=== PATIENT | female | born 1990 | race Hispanic/Latino ===

== ENCOUNTER → 2018-03-21 | Day surgery (SDC) | payer OTHER ==
[2018-03-18 15:08] LABS: BASOPHILS % 0.6 % (0.0-1.0); EOSINOPHILS # (AUTO) 0.1 (0.0-0.4); EOSINOPHILS % 1.8 % (0.0-6.0); HEMATOCRIT 38.6 % (34.2-44.1); HEMOGLOBIN 13.1 g/dL (12.0-16.0); LYMPHOCYTES # (AUTO) 2.4 (1.0-3.2); MEAN CORPUSCULAR HEMOGLOBIN 30.5 pg (28-32); MEAN CORPUSCULAR HGB CONC 33.9 g/dL (31-35); MEAN CORPUSCULAR VOLUME 89.8 fL (81-99); MONOCYTES # (AUTO) 0.4 (0.2-0.8); MONOCYTES % 5.9 % (4.4-11.3); NEUTROPHILS # (AUTO) 4.1 (2.1-6.9); NEUTROPHILS % 57.6 % (38.7-80.0); PLATELET COUNT 301 x10e3/uL (140-360); RED CELL DISTRIBUTION WIDTH 13.6 % (11.7-14.4)
[~2018-03-21] MED LIST: BUPIVACAINE 0.25%/EPI 30ML SDV INJ ONE; DEXAMETHASONE SOD PHOS INJ 4 MG/ML VIAL ONE; DOXYCYCLINE HY100 MG PO; FENTANYL CITRATE/PF 100MCG/2 ML INJ ONE; HYDROMORPHONE 2MG/ML 2 MG/ML ML ONE; IODINE/POTASSIUM IODIDE 8 ML SOLUTION TP ONE; KETOROLAC TROMETHAMINE 30 MG/ML VIAL ONE; LIDOCAINE HCL 2% LOCAL INJ 5 ML SDV VIAL INJ ONE; MIDAZOLAM HCL 2 MG/2 ML VIAL ONE; ONDANSETRON HCL INJ 2MG/ML 2ML 2 MG/ML VIAL ONE; PROPOFOL IV EMULSION 10 MG/ML 20 ML VIAL ONE; SEVOFLURANE INHAL SOLN 250 ML PEN BTL ONE
--- OUTSIDE RECORDS SUMMARY | 2018-03-21 10:27 | XMS REPORT | Clinical Summary ---
Author Author [facility] Address Unknown Phone Unavailable Care Team Providers Care Tape Coater Name Role Phone Asked, No Pcp PCP Unavailable Allergies No Known Allergies Medications No known medications Active Problems Not on file Encounters Care Team Description Date Type Specialty Ascencion Visnon MD Open wound of umbilical region, initial encounter (Primary Dx) 11/16/2017 Emergency Emergency Medicine Jonel Cobos, RAD[facility] Leon Guerra MD Fall from standing, initial encounter (Primary Dx); Injury of head, initial encounter; Concussion without loss of consciousness, initial encounter 11/06/2017 Emergency Emergency Medicine - 11/07/2017 after 03/20/2017 Social History Date Tobacco Use Types Packs/Day Years Used Never Smoker Smokeless Tobacco: Never Used Alcohol Use Drinks/Week oz/Week Comments Yes occasional. Sex Assigned at Date Recorded Not on file Industry Job Start Date Occupation Not on file Not on file Not on file Travel End Travel History Travel Start No recent travel history available. Last Filed Vital Signs Time Taken Vital Sign Reading 11/16/2017 11:37 AM CDT Blood Pressure 110/59 11/07/2017 12:06 AM CDT Pulse 75 11/16/2017 11:37 AM CDT Temperature 37.1 C (98.8 F) 11/16/2017 11:37 AM CDT Respiratory Rate 16 11/16/2017 11:37 AM CDT Oxygen Saturation 100% - Inhaled Oxygen - Concentration 11/16/2017 11:37 AM CDT Weight 71.2 kg (157 lb) 11/16/2017 11:37 AM CDT Height 170.2 cm (5' 7") 11/16/2017 11:37 AM CDT Body Mass Index 24.59 Plan of Treatment Health Maintenance Due Date Last Done Comments CERVICAL CANCER SCREENING 04/27/2011 INFLUENZA VACCINE 09/26/2017 Procedures Comments Procedure Name Priority Date/Time Associated Diagnosis CT ABDOMEN PELVIS W STAT 11/16/2017 CONTRAST 1:07 PM CDT HCG QUALITATIVE, SERUM STAT 11/16/2017 SCREEN 11:50 AM CDT ESTIMATED GFR STAT 11/16/2017 11:50 AM CDT COMPREHENSIVE METABOLIC STAT 11/16/2017 PANEL 11:50 AM CDT PARTIAL THROMBOPLASTIN STAT 11/16/2017 TIME (PTT) 11:50 AM CDT PROTHROMBIN TIME WITH INR STAT 11/16/2017 11:50 AM CDT HC COMPLETE BLD COUNT STAT 11/16/2017 W/AUTO DIFF 11:[address] HEAD WO CONTRAST STAT 11/06/2017 11:[address] CERVICAL SPINE WO STAT 11/06/2017 CONTRAST 11:12 PM CDT HCG QUALITATIVE, URINE Routine 11/06/2017 SCREEN 10:00 PM CDT after 03/20/2017 Results * CT Abdomen Pelvis W Contrast (11/16/2017 1:07 PM CDT) Narrative Performed At EXAMINATION:CT ABDOMEN PELVIS W CONTRAST [facility] CLINICAL HISTORY: 27 yearsFemale Abd infection (incl peritonitis), pt wnumerous laparoscopic surgerieshas defect in belly buttoneval for underlying 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 Sagittal and coronal computerized reformatted images were also obtained. CT imaging was performed with iterative reconstruction techniques and/or automated exposure control to reduce radiation dose. COMPARISON:None. IMPRESSION: Lung bases: 1.There are no focal consolidations or effusions. Abdomen: 1. The liver, spleen, pancreas, gallbladder and biliary tree, adrenal glands, and kidneys are normal. 2.The abdominal aorta is normal in caliber. There is no evidence of retroperitoneal mass or adenopathy. 3.The appendix is absent. There is no evidence of intestinal obstruction or free intraperitoneal air. 4.No focal abnormality is identified in the umbilical region. Pelvis: 1. There are changes related to bilateral tubal ligation. 2.A 4.2 cm low density mass is present in the left adnexum. There is a tiny amount of free fluid in the pelvic cul-de-sac. Musculoskeletal: Regional skeletal structures are within normal limits. SUMMARY: 1.4.2 cm low-density mass left adnexum likely represents a hemorrhagic cyst. Pelvic ultrasonography is recommended for further evaluation. 2.Status post bilateral tubal ligation. 3.No evidence of umbilicus fluid collection or fistula. [facility]-[id number] Procedure Note Interface, Radiology Results Incoming - 11/16/2017 1:22 PM CDT EXAMINATION: CT ABDOMEN PELVIS W CONTRAST CLINICAL HISTORY: 27 yearsFemale Abd infection (incl peritonitis), pt w numerous laparoscopic surgeries has defect in belly button eval for underlying abscess communicating fistula in the area of the navel TECHNIQUE: Multiple axial images of the abdomen and pelvis were obtained following intravenous administration of iodinated contrast. Sagittal and coronal computerized reformatted images were also obtained. CT imaging was performed with iterative reconstruction techniques and/or automated exposure control to reduce radiation dose. COMPARISON: None. IMPRESSION: Lung bases: 1. There are no focal consolidations or effusions. Abdomen: 1. The liver, spleen, pancreas, gallbladder and biliary tree, adrenal glands, and kidneys are normal. 2. The abdominal aorta is normal in caliber. There is no evidence of retroperitoneal mass or adenopathy. 3. The appendix is absent. There is no evidence of intestinal obstruction or free intraperitoneal air. 4. No focal abnormality is identified in the umbilical region. Pelvis: 1. There are changes related to bilateral tubal ligation. 2. A 4.2 cm low density mass is present in the left adnexum. There is a tiny amount of free fluid in the pelvic cul-de-sac. Musculoskeletal: Regional skeletal structures are within normal limits. SUMMARY: 1. 4.2 cm low-density mass left adnexum likely represents a hemorrhagic cyst. Pelvic ultrasonography is recommended for further evaluation. 2. Status post bilateral tubal ligation. 3. No evidence of umbilicus fluid collection or fistula. [facility]-[id number] Performing Organization Address City/State/Zipcode Phone Number [facility] [address] [place] [address] * Estimated GFR (11/16/2017 11:50 AM CDT) Estimated GFR >=90 mL/min/1.73 m2 [facility] DEPARTMENT OF Comment: PATHOLOGY AND [employer]ory[employer]its[employer] GENOMIC MEDICINE rpretation G1 >=90 Normal or high G2 60-89Mildly decreased [id number] Mildly to moderately decreased [id number] Moderately to severely decreased G4 15-29Severely decreased G5 <15Kidney failure The eGFR was calculated using the Chronic Kidney Disease Epidemiology Collaboration (CKD-EPI) equation. Interpretation is based on recommendations of the National Kidney Foundation-Kidney Disease Outcomes Quality Initiative (NKF-KDOQI) published in 2014. Specimen Plasma specimen Performing Organization Address [facility] Phone Number [address] [place] [address] PATHOLOGY AND [facility] * Partial thromboplastin time, activated (11/16/2017 11:50 AM CDT) PTT 31.9 23.0 - 36.0 sec [facility] DEPARTMENT OF Comment: PATHOLOGY AND PTT therapeutic range for GENOMIC MEDICINE unfractionated heparin is 61.0-112.0 seconds which corresponds to Anti-Xa 0.3-0.7 U/ml. Specimen Blood Performing Organization Address [facility] Phone Number [address] [place] [address] PATHOLOGY AND [facility] * Prothrombin time with INR (11/16/2017 11:50 AM CDT) Prothrombin time 12.1 12.0 - 15.0 sec [facility] DEPARTMENT OF PATHOLOGY AND [facility] MEDICINE INR 0.9 [facility] DEPARTMENT OF Comment: PATHOLOGY AND The International Normalized GENOMIC MEDICINE Ratio (INR) is a therapeutic monitoring tool for patients who are stable on oral anticoagulant therapy. An INR of 2.0-3.0 is suggested for deep vein thrombosis/pulmonary embolism. Specimen Blood Performing Organization Address [facility] Phone Number [address] [place] [address] PATHOLOGY AND [facility] * CBC with platelet and differential (11/16/2017 11:50 AM CDT) WBC 9.37 4.50 - 11.00 k/uL [facility] DEPARTMENT OF PATHOLOGY AND [facility] MEDICINE RBC 4.42 4.20 - 5.50 m/uL [facility] DEPARTMENT OF PATHOLOGY AND GENOMIC MEDICINE HGB 12.8 12.0 - 16.0 g/dL [facility] DEPARTMENT OF PATHOLOGY AND GENOMIC MEDICINE HCT 38.7 37.0 - 47.0 % [facility] DEPARTMENT OF PATHOLOGY AND GENOMIC MEDICINE MCV 87.6 82.0 - 100.0 fL [facility] DEPARTMENT OF PATHOLOGY AND GENOMIC MEDICINE MCH 29.0 27.0 - 34.0 pg [facility] DEPARTMENT OF PATHOLOGY AND GENOMIC MEDICINE MCHC 33.1 31.0 - 37.0 g/dL [facility] DEPARTMENT OF PATHOLOGY AND GENOMIC MEDICINE RDW - SD 46.5 37.0 - 55.0 fL [facility] DEPARTMENT OF PATHOLOGY AND GENOMIC MEDICINE MPV 11.2 8.8 - 13.2 fL [facility] DEPARTMENT OF PATHOLOGY AND GENOMIC MEDICINE Platelet count 305 150 - 400 k/uL [facility] DEPARTMENT OF PATHOLOGY AND GENOMIC MEDICINE Nucleated RBC 0.00 /100 WBC [facility] DEPARTMENT OF PATHOLOGY AND GENOMIC MEDICINE Neutrophils 66.1 39.0 - 69.0 % [facility] DEPARTMENT OF PATHOLOGY AND GENOMIC MEDICINE Lymphocytes 26.4 25.0 - 45.0 % [facility] DEPARTMENT OF PATHOLOGY AND GENOMIC MEDICINE Monocytes 5.7 0.0 - 10.0 % [facility] DEPARTMENT OF PATHOLOGY AND GENOMIC MEDICINE Eosinophils 1.1 0.0 - 5.0 % [facility] DEPARTMENT OF PATHOLOGY AND GENOMIC MEDICINE Basophils 0.4 0.0 - 1.0 % [facility] DEPARTMENT OF PATHOLOGY AND GENOMIC MEDICINE Specimen Blood Performing Organization Address City/[facility]/Zipcode Phone Number [address] [place] [address] PATHOLOGY AND [facility] MEDICINE * hCG qualitative, serum screen (11/16/2017 11:50 AM CDT) hCG qualitative, serum Negative [facility] DEPARTMENT OF Comment: PATHOLOGY AND LOT # [id number] GENOMIC MEDICINE EXP : 04/2019 Specimen Blood Performing Organization Address City/[facility]/Zipcode Phone Number [address] [place] [address] PATHOLOGY [facility] MEDICINE * Comprehensive metabolic panel (11/16/2017 11:50 AM CDT) Sodium 138 135 - 148 mEq/L [facility] DEPARTMENT OF PATHOLOGY AND GENOMIC MEDICINE Potassium 4.0 3.5 - 5.0 mEq/L [facility] DEPARTMENT OF PATHOLOGY AND GENOMIC MEDICINE Chloride 101 98 - 112 mEq/L [facility] DEPARTMENT OF PATHOLOGY AND GENOMIC MEDICINE CO2 26 24 - 31 mEq/L [facility] DEPARTMENT OF PATHOLOGY AND GENOMIC MEDICINE Anion gap 11@ANIO 7 - 15 mEq/L [facility] OF PATHOLOGY AND GENOMIC MEDICINE BUN 10 6 - 20 mg/dL [facility] OF PATHOLOGY AND GENOMIC MEDICINE Creatinine 0.70 0.50 - 0.90 mg/dL [facility] DEPARTMENT OF PATHOLOGY AND GENOMIC MEDICINE Glucose 129 (H) 65 - 99 mg/dL [facility] DEPARTMENT OF PATHOLOGY AND GENOMIC MEDICINE Calcium 9.9 8.3 - 10.2 mg/dL [facility] DEPARTMENT OF PATHOLOGY AND GENOMIC MEDICINE Protein 8.2 6.3 - 8.3 g/dL [facility] DEPARTMENT OF Comment: PATHOLOGY AND GENOMIC MEDICINE 4.6-7.0 g/dL 1 week 4.4-7.6 g/dL 7 months-1year 5.1-7.3 g/dL 1-2 years5.6-7 .5 g/dL >3 years6.0-8 .0 g/dL 18-150 6.3-8.3 g/dL Albumin 4.7 3.5 - 5.0 g/dL [facility] OF PATHOLOGY AND GENOMIC MEDICINE A/G ratio 1.3 0.7 - 3.8 [facility] DEPARTMENT OF PATHOLOGY AND GENOMIC MEDICINE Alkaline phosphatase 59 35 - 104 U/L [facility] OF PATHOLOGY AND GENOMIC MEDICINE AST 16 10 - 35 U/L [facility] OF PATHOLOGY AND GENOMIC MEDICINE ALT 8 5 - 50 U/L [facility] OF PATHOLOGY AND GENOMIC MEDICINE Total bilirubin 0.4 0.0 - 1.2 mg/dL [facility] DEPARTMENT OF PATHOLOGY AND GENOMIC MEDICINE Specimen Plasma specimen Performing Organization Address City/State/Zipcode Phone Number [facility] [place] [address] [place] [address] PATHOLOGY AND GENOMIC MEDICINE * CT Head Wo Contrast (11/06/2017 11:13 PM CDT) Narrative Performed At EXAMINATION: CT HEAD WO CONTRAST [facility] CLINICAL HISTORY: s p fallhead injury COMPARISON:None. TECHNIQUE: Noncontrast enhanced images of the brain were obtained from the skull base to the vertex. Both soft tissue and bone reconstruction algorithms were performed. CT scans are performed using radiation dose reduction techniques (iterative reconstruction and/or automated exposure control). Technical factors are evaluated and adjusted to ensure appropriate moderation of exposure. Automated dose management technology is applied to adjust radiation exposure while achieving a diagnostic quality image. FINDINGS: The brain parenchyma is unremarkable. The tolbert-white matter differentiation is preserved. No evidence of acute intra or extra-axial hemorrhage, mass, mass effect or acute territorial infarction. There is no acute hydrocephalus. Basal cisterns are patent. No acute soft tissue hematoma or laceration. No skull fractures or aggressive bony lesions. Paranasal sinuses and mastoid air cells are clear. Orbits are normal. IMPRESSION: No acute intracranial abnormality identified. [facility]-[id number] Procedure Note Interface, Radiology Results Incoming - 11/06/2017 11:18 PM CDT EXAMINATION: CT HEAD WO CONTRAST CLINICAL HISTORY: s p fall head injury COMPARISON: None. TECHNIQUE: Noncontrast enhanced images of the brain were obtained from the skull base to the vertex. Both soft tissue and bone reconstruction algorithms were performed. CT scans are performed using radiation dose reduction techniques (iterative reconstruction and/or automated exposure control). Technical factors are evaluated and adjusted to ensure appropriate moderation of exposure. Automated dose management technology is applied to adjust radiation exposure while achieving a diagnostic quality image. FINDINGS: The brain parenchyma is unremarkable. The tolbert-white matter differentiation is preserved. No evidence of acute intra or extra-axial hemorrhage, mass, mass effect or acute territorial infarction. There is no acute hydrocephalus. Basal cisterns are patent. No acute soft tissue hematoma or laceration. No skull fractures or aggressive bony lesions. Paranasal sinuses and mastoid air cells are clear. Orbits are normal. IMPRESSION: No acute intracranial abnormality identified. [facility]-[id number] Performing Organization Address City/State/Zipcode Phone Number [facility] [address] [place] [address] * CT Cervical Spine Wo Contrast (11/06/2017 11:12 PM CDT) Narrative Performed At EXAMINATION: [facility]: neck painafter trauma COMPARISON:None TECHNIQUE: Noncontrast enhanced imaging through the cervical spine was performed with coronal and sagittal reconstructed images. CT scans are performed using radiation dose reduction techniques (iterative reconstruction and/or automated exposure control). Technical factors are evaluated and adjusted to ensure appropriate moderation of exposure. Automated dose management technology is applied to adjust radiation exposure while achieving a diagnostic quality image. FINDINGS: Cervical lordosis is maintained.No acute fractures or subluxations.No soft tissue abnormalities are seen. No significant posterior disc disease, spinal canal or neural foraminal stenosis. IMPRESSION: No acute osseous abnormality of the cervical spine. [id number] Procedure Note Hm Interface, Radiology Results Incoming - 11/06/2017 11:20 PM CDT EXAMINATION: CT CERVICAL SPINE WO CONTRAST CLINICAL HISTORY: neck pain after trauma COMPARISON: None TECHNIQUE: Noncontrast enhanced imaging through the cervical spine was performed with coronal and sagittal reconstructed images. CT scans are performed using radiation dose reduction techniques (iterative reconstruction and/or automated exposure control). Technical factors are evaluated and adjusted to ensure appropriate moderation of exposure. Automated dose management technology is applied to adjust radiation exposure while achieving a diagnostic quality image. FINDINGS: Cervical lordosis is maintained. No acute fractures or subluxations. No soft tissue abnormalities are seen. No significant posterior disc disease, spinal canal or neural foraminal stenosis. IMPRESSION: No acute osseous abnormality of the cervical spine. [facility]-[id number] Performing Organization Address City/[facility] Phone Number [facility] [address] [place] [address] * hCG qualitative, urine screen (11/06/2017 10:00 PM CDT) hCG qualitative, urine Negative Negative [facility] DEPARTMENT OF Comment: PATHOLOGY AND The manufacturers stated GENOMIC MEDICINE sensitivity of HcG test for serum is >/=10 mIU/ml and urine is >/=20mIU/ml. Specimen Urine Performing Organization Address [facility] Phone Number [facility] [place] [address] [place] [address] PATHOLOGY AND GENOMIC MEDICINE after 03/20/2017 Insurance Payer Benefit Subscriber ID Type Phone Address Plan / Group MEDICAID MEDICAID xxxxxxxxx Medicaid Advance Directives Patient has advance care planning documents on file. For more information, eloy abdullahi contact: Richard Shea [address] [place] [address]
--- NOTE | 2018-03-21 14:43 | Operative Report ---
DATE OF PROCEDURE: March 21, 2018 PREOPERATIVE DIAGNOSIS: JUSTINE-I. POSTOPERATIVE DIAGNOSIS: JUSTINE-I. PROCEDURE: Cone biopsy. COMPLICATIONS: None. ESTIMATED BLOOD LOSS: 100 mL. Patient was taken to the OR where general anesthesia was placed, and prepped and draped in a sterile fashion. Placed in the dorsal lithotomy position. Vicryl 0 stay sutures were placed at 3 and 9 o'clock on the cervix. Lugol Iodine was applied on the cervix and showed no test positive areas. A cone biopsy was performed with scalpel. The C-bed was cauterized with the Bovie. Multiple interrupted figure-of-8 sutures were applied on the periphery around the circumference of the cervix. Hemostasis was achieved. FloSeal and Surgicel were placed in. The patient tolerated the procedure well. Lap, sponge and needle counts were correct times 2 at the end of the procedure. Job#: [id number] REYES
[2018-03-21 16:45] VITALS: BP 117/69
== END | disposition home or self-care (01) ==
LOC: OR 10:25
PROVIDERS: ATTEND Obstetrics & Gynecology
DX: N87.0 Mild cervical dysplasia (principal); Z01.812 Encounter for preprocedural laboratory examination
CPT/HCPCS: 36415; 57520; 84702; 85025; 88307; 88342; J1100; J1170; J1885; J2001; J2250; J2405; J2704; 88304